=== PATIENT | male | born 1980 | race Caucasian/White ===

== ENCOUNTER 2018-02-05 15:25 | Emergency (ER) | payer OTHER ==
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
== END 2018-02-05 16:20 | disposition home or self-care (01) ==
LOC: FER 15:25
DX: Z04.1 Encounter for examination and observation following transport accident (principal); V53.6XXA Passenger in pick-up truck or van injured in collision with car, pick-up truck or van in traffic accident, initial encounter; Y93.89 Activity, other specified; Y92.412 Parkway as the place of occurrence of the external cause; E11.9 Type 2 diabetes mellitus without complications; F84.0 Autistic disorder; F79 Unspecified intellectual disabilities
CPT/HCPCS: 99281-25